=== PATIENT | female | born 1995 | race Caucasian/White ===

== ENCOUNTER 2022-02-07 20:11 | Emergency (ER) | payer MEDICAID ==
[~2022-02-07] VITALS: Ht 152.4 cm; Wt 118.2 kg
[~2022-02-07 20:11] MED LIST: CYCL-1 PO
[2022-02-07 20:31] VITALS: BP 131/72
[2022-02-07 22:01] LABS: URINE HCG NEGATIVE (NEG)
== END 2022-02-07 22:10 ==
LOC: ER 20:12
DX: Z02.89 Encounter for other administrative examinations (principal); Z79.899 Other long term (current) drug therapy
CPT/HCPCS: 81025; 99283

== ENCOUNTER 2022-02-28 21:53 | Emergency (ER) | payer MEDICAID, OTHER ==
[~2022-02-28] VITALS: Ht 152.4 cm; Wt 113.6 kg
--- NOTE | 2022-02-28 22:30 | NUR ---
contacted [facility] and [facility], neither facility has SART nurse available at this time. Per [facility] nursing supervisor filtration and SART nurse, pt to receive medical tx as needed and will follow up in AM with [facility] and Dr Layton for follow up
[2022-02-28 22:49] LABS: URINE HCG NEGATIVE (NEG)
[2022-02-28] MEDS ORDERED: LEVONORGESTREL 1.5MG tablet 1.5 MG TABLET PO ONE (22:50)
[2022-02-28] MEDS ORDERED: CefTRIAXone 500MG IM Kit w/LIDOcaine (for pt below or = to 150kg) IM ONE (22:50)
[2022-02-28] MEDS ORDERED: azithromycin 250mg tablet PO ONE (22:50)
[2022-02-28] MEDS ORDERED: TINIDAZOLE 500 MG TABLET PO ONE (22:50)
--- NOTE | 2022-02-28 23:18 | NUR ---
TINDALIZOLE NOT GIVEN DUE TO DRINKING ALCH W/IN LAST 6 HRS
[2022-02-28 23:28] VITALS: BP 132/80
== END 2022-02-28 23:34 | disposition home or self-care (01) ==
LOC: ER 21:54 → EEVIPCON 21:54 → ER 23:34
DX: T74.21XA Adult sexual abuse, confirmed, initial encounter (principal)
CPT/HCPCS: 81025; 96372; 99283; J0696